=== PATIENT | male | born 1955 | race Caucasian/White ===

== ENCOUNTER 2025-04-12 02:40 | Emergency (ER) | payer MEDICARE, MEDICAID ==
[2025-04-12 03:59] VITALS: PULSE 85; RESP 16; O2SAT 99
== END 2025-04-12 03:11 | disposition left against medical advice (07) ==
LOC: ER 02:40
DX: R10.12 Left upper quadrant pain (principal); I10 Essential (primary) hypertension; E11.9 Type 2 diabetes mellitus without complications; Z00.00 Encounter for general adult medical examination without abnormal findings
CPT/HCPCS: 99281; 99282